=== PATIENT | female | born 1980 | race Caucasian/White ===

== ENCOUNTER 2021-05-27 19:05 | Inpatient (IN) | payer OTHER ==
[~2021-05-27] VITALS: Ht 172.7 cm; Wt 80.4 kg
[2021-05-27 19:20] LABS: Calcium, Ionized (POC) 1.14 mmol/L (1.10-1.46); Chloride (POC) 99 mmol/L (98-108); Creatinine (POC) 0.8 mg/dL (0.6-1.0); Glucose (ISTAT POC) 204 mg/dL (70-99); Hemoglobin (POC) 11.6 g/dL (12.0-16.0); Potassium (POC) 3.3 mmol/L (3.5-5.5); Sodium (POC) 137 mmol/L (135-148); Total CO2 (POC) 24 mmol/L (21-32)
[2021-05-27 19:47] LABS: BASOPHILS ABSOLUTE AUTO 0.05 K/mm3 (0.00-0.23); BASOPHILS PERCENT AUTO 0 % (0-2); EOSINOPHILS ABSOLUTE AUTO 0.14 K/mm3 (0.00-0.68); EOSINOPHILS PERCENT AUTO 1 % (0-6); Hematocrit 35.4 % (33.0-51.0); Hemoglobin 11.9 g/dL (11.5-16.0); IMMATURE GRAN PERCENT AUTO 1 % (0-1); LYMPHOCYTES ABSOLUTE AUTO 4.53 K/mm3 (0.84-5.20); LYMPHOCYTES PERCENT AUTO 23 % (21-46); MONOCYTES ABSOLUTE AUTO 1.05 K/mm3 (0.16-1.47); MONOCYTES PERCENT AUTO 5 % (4-13); Mean Corpuscular HGB 30.9 pg (26.0-34.0); Mean Corpuscular HGB Conc 33.6 g/dL (31.5-36.5); Mean Corpuscular Volume 92 fL (80-100); Mean Platelet Volume 11.1 fL (9.1-12.4); NEUTROPHILS ABSOLUTE AUTO 13.53 K/mm3 (1.96-9.15); NEUTROPHILS PERCENT AUTO 70 % (41-73); Platelet Count 309 K/mm3 (150-400); RDW Coefficient Variation 12.2 % (11.7-14.2); RDW Standard Deviation 40.4 fL (35.1-46.3); Red Blood Cell Count 3.85 M/mm3 (3.80-5.20)
[2021-05-27 19:55] LABS: Anion Gap 9 mmol/L (6-16); Blood Urea Nitrogen 19 mg/dL (8-24); Bun/Creatinine Ratio 23.2 (12.0-20.0); CO2, Blood 25 mmol/L (21-32); Chloride, Blood 104 mmol/L (98-108); Creatinine, Blood 0.82 mg/dL (0.40-1.00); Glomerular Filtration Rate >60 (60-); Glucose, Blood 201 mg/dL (70-99); Potassium, Blood 3.4 mmol/L (3.5-5.5); Sodium, Blood 138 mmol/L (136-145)
[2021-05-28 01:53] LABS: Hemoglobin 8.5 g/dL (11.5-16.0)
[2021-05-28 06:21] LABS: Hematocrit 24.2 % (33.0-51.0); Hemoglobin 8.1 g/dL (11.5-16.0)
--- NOTE | 2021-05-28 13:57 | NUR ---
05/28/21 1357 Jing Jamison History, Chart, Medications and Allergies reviewed before start of procedure. Patient confirms NPO status and agrees with scheduled surgery. 3-LEAD EKG REVIEWED WITH PHYSICIAN PRIOR TO START OF PROCEDURE. MONITOR INTACT WITH CONTINUOUS PULSE OXIMETRY AND INTERMITTENT BP. PATIENT DETERMINED TO BE ASA APPROPRIATE FOR PROPOFOL SEDATION PRIOR TO START OF PROCEDURE BY
--- NOTE | 2021-05-28 14:36 | NUR ---
PT HAD SHORT PERIODS OF PVX'S DURING THE PROCEDURE. AFTER PROCEDURE PT WENT INTO A BIGEMINY RHYTHM. DR. VILLELA INFORMED OF THIS AND STATES PT ON TELE AND HE WILL ASK HOSPITILIST TO DO A CARDIAC WORKUP.
[2021-05-28 15:26] LABS: Hematocrit 24.1 % (33.0-51.0); Hemoglobin 8.1 g/dL (11.5-16.0)
--- NOTE | 2021-05-28 18:46 | NUR ---
PT A/O X4. VSS. PT TO OR TODAY FOR COLONOSCOPY. PT HAD A BRIEF EPISODE OF BIGEMENY, EKG WAS OBTAINED UPON RETURN TO ROOM WHICH WAS NSR. PT DENIED CP, ABD PAIN, OR SOB. NO ACTIVE RECTAL BLEEDING, PT WITH ADDITIONAL CLIPS PLACED DURING COLONOSCOPY. BP HAS IMRPOVED DURING THIS SHIFT. PT WILL LIKELY BE D/C IN THE AM UPON REASSESSMENT WITH DR MURRAY. PT AMULATES WITHOUT ASSISTANCE
--- NOTE | 2021-05-29 01:31 | NUR ---
ASSUMED CARE OF PATIENT AT 1900. A/OX4, VERY DROWSY. MILD ABDOMINAL DISTENTION WITH SOME TENDERNESS IN LLQ. HYPERACTIVE BOWEL SOUNDS. BP REMAINS SOFT UNTIL MIDODRINE IS GIVEN. MAP OF 67 PRIOR TO MIDODRINE, AND MAP OF 81 AFTER. MAINTAINS OVER 95% ON RA. / BLOOD CULTURE RESULTED IN GRAM POS COCCI/CLUSTERS, HOWEVER THE 2ND ONE DID NOT. ANTIBIOTIC COVERAGE WAS ORDERED BUT PATIENT DECLINED AND WOULD LIKE TO SEE IF THERE'S ANY GROWTH ON THE NEG PLATE TOMORROW BEFORE STARTING. WILL UPDATE CHANGES OCCUR.
[2021-05-29 04:26] LABS: BASOPHILS ABSOLUTE AUTO 0.01 K/mm3 (0.00-0.23); BASOPHILS PERCENT AUTO 0 % (0-2); EOSINOPHILS ABSOLUTE AUTO 0.08 K/mm3 (0.00-0.68); EOSINOPHILS PERCENT AUTO 2 % (0-6); Hematocrit 21.8 % (33.0-51.0); Hemoglobin 7.2 g/dL (11.5-16.0); IMMATURE GRAN ABSOLUTE AUTO 0.01 K/mm3 (0.00-0.10); IMMATURE GRAN PERCENT AUTO 0 % (0-1); LYMPHOCYTES ABSOLUTE AUTO 1.99 K/mm3 (0.84-5.20); LYMPHOCYTES PERCENT AUTO 44 % (21-46); MONOCYTES ABSOLUTE AUTO 0.27 K/mm3 (0.16-1.47); MONOCYTES PERCENT AUTO 6 % (4-13); Mean Corpuscular HGB 31.2 pg (26.0-34.0); Mean Corpuscular Volume 94 fL (80-100); Mean Platelet Volume 10.7 fL (9.1-12.4); NEUTROPHILS ABSOLUTE AUTO 2.13 K/mm3 (1.96-9.15); NEUTROPHILS PERCENT AUTO 48 % (41-73); Platelet Count 129 K/mm3 (150-400); RDW Coefficient Variation 12.4 % (11.7-14.2); RDW Standard Deviation 42.4 fL (35.1-46.3); Red Blood Cell Count 2.31 M/mm3 (3.80-5.20); White Blood Cell Count 4.49 K/mm3 (4.00-11.30)
[2021-05-29 04:41] LABS: Anion Gap 6 mmol/L (6-16); Blood Urea Nitrogen 4 mg/dL (8-24); Bun/Creatinine Ratio 5.7 (12.0-20.0); CO2, Blood 26 mmol/L (21-32); Calcium, Blood 7.8 mg/dL (8.5-10.1); Chloride, Blood 113 mmol/L (98-108); Glomerular Filtration Rate >60 (60-); Glucose, Blood 81 mg/dL (70-99); Potassium, Blood 3.6 mmol/L (3.5-5.5); Sodium, Blood 145 mmol/L (136-145)
[2021-05-29 12:24] LABS: Hematocrit 30.9 % (33.0-51.0); Hemoglobin 10.4 g/dL (11.5-16.0)
[2021-05-29 17:35] LABS: BASOPHILS ABSOLUTE AUTO 0.02 K/mm3 (0.00-0.23); BASOPHILS PERCENT AUTO 0 % (0-2); EOSINOPHILS ABSOLUTE AUTO 0.12 K/mm3 (0.00-0.68); EOSINOPHILS PERCENT AUTO 2 % (0-6); Hematocrit 28.7 % (33.0-51.0); Hemoglobin 9.7 g/dL (11.5-16.0); IMMATURE GRAN ABSOLUTE AUTO 0.02 K/mm3 (0.00-0.10); IMMATURE GRAN PERCENT AUTO 0 % (0-1); LYMPHOCYTES ABSOLUTE AUTO 2.38 K/mm3 (0.84-5.20); LYMPHOCYTES PERCENT AUTO 39 % (21-46); MONOCYTES ABSOLUTE AUTO 0.42 K/mm3 (0.16-1.47); MONOCYTES PERCENT AUTO 7 % (4-13); Mean Corpuscular HGB 30.6 pg (26.0-34.0); Mean Corpuscular HGB Conc 33.8 g/dL (31.5-36.5); Mean Corpuscular Volume 91 fL (80-100); Mean Platelet Volume 10.6 fL (9.1-12.4); NEUTROPHILS PERCENT AUTO 51 % (41-73); Platelet Count 151 K/mm3 (150-400); RDW Coefficient Variation 13.1 % (11.7-14.2); Red Blood Cell Count 3.17 M/mm3 (3.80-5.20); White Blood Cell Count 6.06 K/mm3 (4.00-11.30)
--- NOTE | 2021-05-29 17:45 | NUR ---
PT'S Hgb STABLE DURING THIS SHIFT POST 1UNIT PRBC. PT SBA IN ROOM TO BATHROOM AND BACK TO BED. PT A/O X4, NADN, VSS. PT DOES REPORT SOME MILD DIZZINESS WHILE AMBULATING IN [place] THIS EVENING. PT MADE MEDICAL STATUS W/O TELE. PT WITH BM THIS AFTERNOON WITH A FEW SMALL CLOTS NOTED, STOOL IS BROWN AND FORMED.
--- NOTE | 2021-05-29 22:57 | NUR ---
TRANSFER PCU7 TO 231 PT TRANSFERRED TO THE FLOOR VIA , AMBULATORY/INDEPENDENT IN ROOM UPON ARRIVAL, ORIENTED TO ROOM AND CALL LIGHT, UPDATED PATIENT ON THE PLAN FOR TONIGHT, VITALS OBTAINED AND PT IS STABLE AT THIS TIME. WILL CTM.
[2021-05-30 04:03] LABS: BASOPHILS ABSOLUTE AUTO 0.02 K/mm3 (0.00-0.23); BASOPHILS PERCENT AUTO 0 % (0-2); EOSINOPHILS ABSOLUTE AUTO 0.13 K/mm3 (0.00-0.68); EOSINOPHILS PERCENT AUTO 2 % (0-6); Hematocrit 28.2 % (33.0-51.0); Hemoglobin 9.3 g/dL (11.5-16.0); IMMATURE GRAN ABSOLUTE AUTO 0.02 K/mm3 (0.00-0.10); IMMATURE GRAN PERCENT AUTO 0 % (0-1); LYMPHOCYTES ABSOLUTE AUTO 2.21 K/mm3 (0.84-5.20); LYMPHOCYTES PERCENT AUTO 40 % (21-46); MONOCYTES ABSOLUTE AUTO 0.37 K/mm3 (0.16-1.47); MONOCYTES PERCENT AUTO 7 % (4-13); Mean Corpuscular HGB 30.3 pg (26.0-34.0); Mean Corpuscular Volume 92 fL (80-100); Mean Platelet Volume 11.1 fL (9.1-12.4); NEUTROPHILS ABSOLUTE AUTO 2.84 K/mm3 (1.96-9.15); NEUTROPHILS PERCENT AUTO 51 % (41-73); Platelet Count 141 K/mm3 (150-400); RDW Coefficient Variation 13.2 % (11.7-14.2); Red Blood Cell Count 3.07 M/mm3 (3.80-5.20); White Blood Cell Count 5.59 K/mm3 (4.00-11.30)
--- NOTE | 2021-05-30 06:54 | NUR ---
SHIFT SUMMARY PCU XFER, VSS SINCE ARRIVAL, MORNING LABS APPEAR STABLE, POSSIBLE DC TODAY. NO ACUTE EVENTS THIS SHIFT, CALL LIGHT IN REACH, WILL CTM AND REPORT TO DAY RN.
--- NOTE | 2021-05-30 07:43 | NUR ---
ASSESSMENT: PT SLEEPING, RESP E/U. CALL LIGHT IN REACH. WILL ALLOW REST AND FULLY ASSESS WHEN AWAKE.
[2021-05-30] MEDS ORDERED: DOCU100 PO (11:31)
[2021-05-30] MEDS ORDERED: FERSU300 PO (11:33)
--- NOTE | 2021-05-30 14:52 | NUR ---
DISCHARGE: PT DC TO HOME AT THIS TIME WITH SPOUSE. IV DC'D WNL. VERBAL UNDERSTANDING OF INSTRUCTIONS, FOLLOW UP, PROBLEMS TO REPORT AND MEDICATIONS. MEDS FAXED TO [facility]. PT LEFT AMBULATORY TO CAR WITH BELONGINGS.
== END 2021-05-30 11:45 | disposition home or self-care (01) | DRG 920 ==
LOC: ER 19:05 → PCU 22:18 → SURS 05-29 22:26
PROVIDERS: Emergency Medicine; Student in an Organized Health Care Education/Training Program; ADMIT Internal Medicine
PROC: 0W3P8ZZ Control Bleeding in Gastrointestinal Tract, Via Natural or Artificial Opening Endoscopic (ICD-10-PCS; principal; 2021-05-28 13:30)
PROC: 30233N1 Transfusion of Nonautologous Red Blood Cells into Peripheral Vein, Percutaneous Approach (ICD-10-PCS; 2021-05-29)
DX: K91.840 Postprocedural hemorrhage of a digestive system organ or structure following a digestive system procedure (principal); D62 Acute posthemorrhagic anemia; R00.8 Other abnormalities of heart beat; I95.9 Hypotension, unspecified; D72.829 Elevated white blood cell count, unspecified; K64.4 Residual hemorrhoidal skin tags; K64.8 Other hemorrhoids; E87.6 Hypokalemia; Y84.8 Other medical procedures as the cause of abnormal reaction of the patient, or of later complication, without mention of misadventure at the time of the procedure; Z88.8 Allergy status to other drugs, medicaments and biological substances; Z88.5 Allergy status to narcotic agent; Z88.6 Allergy status to analgesic agent; Z86.010 Personal history of colon polyps
CPT/HCPCS: 36415; 36430; 74022; 80047; 80048; 83735; 85014; 85018; 85025; 86850; 86900; 86901; 86923; 87040; 93005; 93010; 96374; 96375; 99285-25; A9270; J0171; J0780; J2405; J2704; J3480; J7030; J7050; J7120; P9016